=== PATIENT | male | born 1965 | race Caucasian/White ===

== ENCOUNTER 2017-01-12 15:54 | Emergency (ER) | payer MEDICAID ==
[2017-01-12 16:06] VITALS: BP 159/99
--- NOTE | 2017-01-12 17:26 | EDM.PDOC ---
[id number] 4d WITHDRAWAL SYMPTOMS Time Seen by Provider: 01/12/17 16:30 Source of Information: Reports: Patient History Limitations: Reports: No limitations - History of Present Illness INITIAL COMMENTS - FREE TEXT/NARRATIVE: 51-year-old male with chronic anxiety presents with intermittent palpitations and generalized ill feeling while trying to wean himself off of lorazepam. He is very nonspecific about his symptoms. He was placed on a monitor and is in normal sinus rhythm. No nausea vomiting, no diarrhea. Apparently he took 3 doses of lorazepam 3 days ago, 2 doses 2 days ago and is waiting for 72 hours to see if he can get through without having significant side effects. The 72 hours will be at 2:00 tomorrow. Onset: unknown/unsure Associated Symptoms: Reports: chest pain (Intermittent slight chest discomfort) , shortness of breath. Denies: fever/chills, headaches - Related Data Allergies Allergy/AdvReac Type Severity Reaction Status Date / Time bupropion HCl Allergy Intermediate Anxiety Verified 01/12/17 16:14 [From Wellbutrin] citalopram Allergy Headache Verified 01/12/17 16:14 sertraline HCl [From Zoloft] Allergy Confusion Verified 01/12/17 16:14 venlafaxine HCl Allergy Confusion Verified 01/12/17 16:14 [From Effexor] Home Meds: Home Meds Lisinopril [Lisinopril] 20 mg PO DAILY 06/05/15 [History] LORazepam 1 mg PO Q4H PRN 06/09/15 [History] Metoprolol Succinate [Toprol XL] 100 mg PO DAILY 06/09/15 [History] atorvaSTATin [Lipitor] 20 mg PO DAILY 09/20/15 [History] Aspirin 81 mg PO DAILY 03/05/16 [History] Fluticasone Propionate [Flonase] 16 gm NS DAILY 03/05/16 [History] Gabapentin [Neurontin] 900 mg PO QID 03/05/16 [History] Sodium Borate [Dobell's] 3 puff EARLF ASDIRECTED 03/05/16 [History] Mirtazapine 0.5 - 1 tab PO DAILY 01/12/17 [History] fluvoxaMINE [Luvox] 150 mg PO DAILY 01/12/17 [History] Past Medical History HEENT History: Reports: Hard of hearing, Otitis media Cardiovascular History: Reports: Arrhythmia, High cholesterol, Hypertension Other Cardiovascular History: tachycardia Respiratory History: Reports: COPD Gastrointestinal History: Reports: GERD Musculoskeletal History: Reports: Fracture Psychiatric History: Reports: Addiction, Anxiety, Panic attack Endocrine/Metabolic History: Reports: Obesity/BMI 30+ Dermatologic History: Reports: Other (see below) Other Dermatologic History: skin tags - Infectious Disease History Infectious Disease History: Reports: Chicken pox - Past Surgical History Other HEENT Surgeries/Procedures: left ear operations Other Respiratory Surgeries/Procedures: Chest tubes in 4th grade GI Surgical History: Reports: Hernia repair/other Musculoskeletal Surgical History: Reports: Other (see below) Other Musculoskeletal Surgeries/Procedures:: left ankle Social & Family History - Tobacco Use Smoking Status *Q: Never Smoker Years of Tobacco use: 22 Packs/Tins Daily: 1 Used Tobacco, but Quit: No Month Tobacco Last Used: 2008 Second Hand Smoke Exposure: Yes - Alcohol Use Days Per Week of Alcohol Use: 0 Number of Drinks Per Day: 4 Total Drinks Per Week: 0 - Recreational Drug Use Recreational Drug Use: Yes Drug Use in Last 12 Months: Yes Recreational Drug Type: Reports: Other (see below) Other Recreational Drug Type: patient was using opiates Recreational Drug Use Frequency: Not Used In Over 1 Month Recreational Drug Last Use: april 2015 - Living Situation & Occupation Living situation: Reports: with significant other (lives with SO of 27 years in [place], [place]. has 4 children.) ED ROS GENERAL - Review of Systems Review Of Systems: See Below Constitutional: Reports: malaise. Denies: fever, chills HEENT: Reports: No symptoms Respiratory: Reports: Shortness of Breath. Denies: Pleuritic Chest Pain Cardiovascular: Reports: Chest pain GI/Abdominal: Denies: Abdominal pain : Reports: no symptoms Skin: Reports: no symptoms Neurological: Reports: Dizziness. Denies: Headache ED EXAM, GENERAL - Physical Exam Exam: See Below Exam Limited By: No limitations General Appearance: alert, no apparent distress Neck: supple Respiratory/Chest: no respiratory distress, lungs clear Cardiovascular: regular rate, rhythm GI/Abdominal: soft, non tender Extremities: normal inspection. No: pedal edema Neurological: alert, oriented Psychiatric: anxious Skin Exam: Warm, Dry Course - Vital Signs Last Recorded V/S: Last Vital Signs Temp 98.6 F 01/12/17 16:09 Pulse 68 01/12/17 16:09 Resp 16 01/12/17 16:09 BP 159/99 H 01/12/17 16:09 Pulse Ox 100 01/12/17 16:09 - Orders/Labs/Meds Labs: Laboratory Tests 01/12/17 01/12/17 Range/Units 17:00 17:00 WBC 10.8 (4.5-11.0) K/uL RBC 5.18 (4.30-5.90) M/uL Hgb 15.3 H (12.0-15.0) g/dL Hct 45.7 (40.0-54.0) % MCV 88 (80-98) fL MCH 30 (27-31) pg MCHC 34 (32-36) % Plt Count 411 H (150-400) K/uL Neut % (Auto) 80 H (36-66) % Lymph % (Auto) 14 L (24-44) % Leake % (Auto) 5 (2-6) % Eos % (Auto) 1 L (2-4) % Baso % (Auto) 1 (0-1) % Sodium 143 (140-148) mmol/L Potassium 4.2 (3.6-5.2) mmol/L Chloride 103 (100-108) mmol/L Carbon Dioxide 27 (21-32) mmol/L Anion Gap 12.6 (5.0-14.0) mmol/L BUN 9 (7-18) mg/dL Creatinine 1.1 (0.8-1.3) mg/dL Est Cr Clr Drug Dosing 89.16 mL/min Estimated GFR (MDRD) > 60 (>60) Glucose 106 (74-106) mg/dL Calcium 8.9 (8.5-10.1) mg/dL - Re-Assessments/Exams Free Text/Narrative Re-Assessment/Exam: 01/12/17 17:23 I tried to explain to the patient that his symptoms could very well be anxiety or even a slight amount of medication withdrawal. He feels the Ativan is giving him palpitations and he wants to try diazepam. I do not feel comfortable substituting medications and I think his best course of action is to just take his medications as prescribed by his physicians. For reassurance I did a CBC and BMP which were completely normal. He was kept on a monitor for almost 2 hours and was in a normal sinus rhythm. Departure - Departure Time of Disposition: 18:03 Disposition: Home, Self-Care 01 Condition: good Clinical Impression: Anxiety about health Instructions: Panic Attacks, [id number] Referrals: Shaji Hayward MD [Primary Care Provider] - Forms: ED Department Discharge Care Plan Goals: Continue taking medications as prescribed by your doctors and any changes should be with the prescribing doctor's recommendation.
== END 2017-01-12 17:50 | disposition home or self-care (01) ==
LOC: JP.ED 15:54
DX: F41.9 Anxiety disorder, unspecified (principal); I10 Essential (primary) hypertension; E78.00 Pure hypercholesterolemia, unspecified; J44.9 Chronic obstructive pulmonary disease, unspecified; K21.9 Gastro-esophageal reflux disease without esophagitis; E66.9 Obesity, unspecified; Z79.899 Other long term (current) drug therapy; Z79.82 Long term (current) use of aspirin; Z88.8 Allergy status to other drugs, medicaments and biological substances
CPT/HCPCS: 36415; 80048; 85025; 99282; 99285

== ENCOUNTER 2017-04-15 14:58 | Emergency (ER) | payer MEDICAID ==
[2017-04-15 15:33] VITALS: BP 161/95
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
== END 2017-04-15 18:59 | disposition home or self-care (01) ==
LOC: JP.ED 14:58
DX: R60.9 Edema, unspecified (principal); F41.9 Anxiety disorder, unspecified; J44.9 Chronic obstructive pulmonary disease, unspecified; K21.9 Gastro-esophageal reflux disease without esophagitis; E66.9 Obesity, unspecified; Z87.891 Personal history of nicotine dependence; Z79.82 Long term (current) use of aspirin; Z79.899 Other long term (current) drug therapy; Z88.8 Allergy status to other drugs, medicaments and biological substances
CPT/HCPCS: 99283

== ENCOUNTER 2017-04-27 17:45 | Emergency (ER) | payer MEDICAID ==
[2017-04-27] MEDS ORDERED: Diazepam 5 MG Tab PO ONE (19:01)
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
[2017-04-27 19:13] VITALS: BP 119/75
== END 2017-04-27 19:26 | disposition home or self-care (01) ==
LOC: JP.ED 17:45
DX: F41.9 Anxiety disorder, unspecified (principal); F17.210 Nicotine dependence, cigarettes, uncomplicated; E78.00 Pure hypercholesterolemia, unspecified; I10 Essential (primary) hypertension; J44.9 Chronic obstructive pulmonary disease, unspecified; K21.9 Gastro-esophageal reflux disease without esophagitis; E66.9 Obesity, unspecified; Z79.82 Long term (current) use of aspirin; Z79.899 Other long term (current) drug therapy; Z98.890 Other specified postprocedural states; Z88.8 Allergy status to other drugs, medicaments and biological substances
CPT/HCPCS: 99283; A9270

== ENCOUNTER 2017-04-30 10:44 | Emergency (ER) | payer MEDICAID ==
[2017-04-30 11:34] VITALS: BP 153/101
[2017-04-30] MEDS ORDERED: LORazepam 1 MG Tab PO ONE (11:49)
[2017-04-30] MEDS ORDERED: ALPRAZolam 0.25 MG Tab PO ONE (12:02)
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
[2017-04-30] MEDS ORDERED: Gabapentin 300 MG Cap PO ONE ×2 (12:37→18:28)
[2017-04-30] MEDS ORDERED: Acetaminophen 500 MG Tab PO ONE (12:37)
[2017-04-30] MEDS ORDERED: Aspirin 81 MG Tab.Chew PO ONE (12:37)
[2017-04-30] MEDS ORDERED: ALPRAZolam 0.5 MG Tab PO ONE (18:28)
[2017-04-30] MEDS ORDERED: Acetaminophen 325 MG Tab PO ONE (18:35)
== END 2017-04-30 19:45 | disposition other institution (70) ==
LOC: JP.ED 10:44
DX: F13.20 Sedative, hypnotic or anxiolytic dependence, uncomplicated (principal); E78.00 Pure hypercholesterolemia, unspecified; I10 Essential (primary) hypertension; J44.9 Chronic obstructive pulmonary disease, unspecified; K21.9 Gastro-esophageal reflux disease without esophagitis; F41.9 Anxiety disorder, unspecified; E66.9 Obesity, unspecified; Z98.890 Other specified postprocedural states; Z79.82 Long term (current) use of aspirin; Z79.899 Other long term (current) drug therapy; Z88.8 Allergy status to other drugs, medicaments and biological substances; Z88.1 Allergy status to other antibiotic agents
CPT/HCPCS: 36415; 80053; 80305; 81001; 84443; 85025; 99285; A9270

== ENCOUNTER 2023-08-15 15:03 | Emergency (ER) | payer MEDICAID ==
[2023-08-15 15:26] LABS: BASOPHILS ABSOLUTE AUTO 0.07 K/uL (0.00-0.10); BASOPHILS PERCENT AUTO 0.7 % (0.1-1.3); EOSINOPHILS ABSOLUTE AUTO 0.08 K/uL (0.00-0.40); EOSINOPHILS PERCENT AUTO 0.8 % (0.0-5.4); HEMATOCRIT 28.9 % (38.4-49.7); IMMATURE GRAN ABSOLUTE AUTO 0.05 K/uL (0.00-0.23); IMMATURE GRAN PERCENT AUTO 0.5 % (0.0-0.7); LYMPHOCYTES ABSOLUTE AUTO 1.02 K/uL (0.8-3.3); LYMPHOCYTES PERCENT AUTO 10.2 % (11.4-47.7); MEAN CORPUSCULAR HEMOGLOBIN 35.7 pg (31.6-35.5); MEAN CORPUSCULAR HGB CONC 34.6 g/dL (31.6-35.5); MEAN CORPUSCULAR VOLUME 103.2 fL (81.4-99.0); MONOCYTES ABSOLUTE AUTO 0.99 K/uL (0.20-0.90); MONOCYTES PERCENT AUTO 9.9 % (3.3-12.6); NEUTROPHILS ABSOLUTE AUTO 7.79 K/uL (1.0-7.6); NEUTROPHILS PERCENT AUTO 77.9 % (40.0-78.1); PLATELET COUNT,PLT 214 K/uL (130-375)
[2023-08-15 15:48] LABS: A/G RATIO 0.4 (1.2-2.2); ALANINE AMINOTRANSFERASE,ALT 39 U/L (12-78); ALBUMIN 1.9 g/dL (3.4-5.0); ALKALINE PHOSPHATASE 129 U/L (46-116); ANION GAP 11.5 mmol/L (5.0-14.0); ASPARTATE AMNIOTRANSFERASE,AST 169 U/L (15-37); BILIRUBIN TOTAL 2.9 mg/dL (0.2-1.0); BLOOD UREA NITROGEN,BUN 9 mg/dL (7-18); C-REACTIVE PROTEIN 5.46 mg/dL (0.0-0.3); CALCIUM 7.9 mg/dL (8.5-10.1); CARBON DIOXIDE,CO2 30 mmol/L (21-32); CHLORIDE,CL 92 mmol/L (100-108); CREATINE KINASE,CK 257 U/L (39-308); CREATININE 0.9 mg/dL (0.8-1.3); EST CRCL DRUG DOSING (CG) 97.61 mL/min; ESTIMATED GFR 100 mL/min (>60); GLUCOSE RANDOM 118 mg/dL (74-106); POTASSIUM,K 4.5 mmol/L (3.6-5.2); PROTEIN TOTAL,TP 6.6 g/dL (6.4-8.2); SODIUM,NA 129 mmol/L (140-148)
[2023-08-15] MEDS ORDERED: Sodium Chloride 0.9% 1,000 ML IV ONE (16:42)
[2023-08-15] MEDS ORDERED: Calcium Carbonate 500 MG Tab.Chew PO ONE (16:51)
[2023-08-15 17:00] LABS: APPEARANCE,URINE CLEAR (CLEAR); BILIRUBIN,URINE NEGATIVE (NEGATIVE); COLOR,URINE YELLOW (YELLOW); GLUCOSE,URINE NEGATIVE (NEGATIVE); KETONES,URINE NEGATIVE (NEGATIVE); LEUKOCYTE ESTERASE,URINE TRACE (NEGATIVE); NITRITE,URINE NEGATIVE (NEGATIVE); OCCULT BLOOD,URINE NEGATIVE (NEGATIVE); PROTEIN,URINE NEGATIVE (NEGATIVE); UROBILINOGEN,URINE >=8.0 EU/dL (0.2-1.0)
[2023-08-15] MEDS ORDERED: Sodium Chloride 0.9% 1,000 ML IV SCH (17:00)
[2023-08-15 17:05] LABS: RBC,URINE 0-5 (0-5); WBC,URINE 0-5 (0-5)
[2023-08-15 17:06] LABS: AMORPHOUS SEDIMENT,URINE NOT SEEN; BACTERIA,URINE RARE; EPITHELIAL CELLS,URINE RARE; MUCUS,URINE NOT SEEN
[2023-08-15 18:05] LABS: BASE EXCESS VENOUS 5.5 mm/L; BICARBONATE,VENOUS 30.1 mmol/L; METHEMOGLOBIN 0.8 %; O2 SATURATION VENOUS 70.4; OXYHEMOGLOBIN 67.7 %; PH,VENOUS 7.431 (7.350-7.450); PO2 VENOUS 41.5 mm/Hg
[2023-08-15 18:16] LABS: AMPHETAMINES SCREEN, URINE NEGATIVE (NEGATIVE); BARBITURATE SCREEN,URINE NEGATIVE (NEGATIVE); BENZODIAZEPINES SCREEN,URINE NEGATIVE (NEGATIVE); METHADONE SCREEN, URINE NEGATIVE (NEGATIVE); METHAMPHETAMINES SCREEN, URINE PRESUMPTIVE POSITIVE (NEGATIVE); OXYCODONE SCREEN,URINE NEGATIVE (NEGATIVE); PROPOXYPHENE SCREEN,URINE NEGATIVE (NEGATIVE); THC SCREEN,URINE 50 NG/ML NEGATIVE (NEGATIVE)
[2023-08-16] MEDS ORDERED: Calcium Carbonate 500 MG Tab.Chew PO PRN (21:36)
[2023-08-17 11:21] LABS: BASOPHILS ABSOLUTE AUTO 0.09 K/uL (0.00-0.10); EOSINOPHILS ABSOLUTE AUTO 0.14 K/uL (0.00-0.40); EOSINOPHILS PERCENT AUTO 1.5 % (0.0-5.4); HEMATOCRIT 27.1 % (38.4-49.7); HEMOGLOBIN 9.2 g/dL (12.9-16.9); IMMATURE GRAN ABSOLUTE AUTO 0.04 K/uL (0.00-0.23); IMMATURE GRAN PERCENT AUTO 0.4 % (0.0-0.7); LYMPHOCYTES ABSOLUTE AUTO 1.33 K/uL (0.8-3.3); LYMPHOCYTES PERCENT AUTO 14.4 % (11.4-47.7); MEAN CORPUSCULAR HEMOGLOBIN 35.8 pg (31.6-35.5); MEAN CORPUSCULAR HGB CONC 33.9 g/dL (31.6-35.5); MEAN CORPUSCULAR VOLUME 105.4 fL (81.4-99.0); MONOCYTES PERCENT AUTO 11.9 % (3.3-12.6); NEUTROPHILS ABSOLUTE AUTO 6.52 K/uL (1.0-7.6); NEUTROPHILS PERCENT AUTO 70.8 % (40.0-78.1); PLATELET COUNT,PLT 193 K/uL (130-375); RED BLOOD CELL COUNT 2.57 M/uL (4.14-5.76); WHITE BLOOD CELL COUNT,WBC 9.2 K/uL (3.2-11.0)
[2023-08-17 11:44] LABS: A/G RATIO 0.4 (1.2-2.2); ALANINE AMINOTRANSFERASE,ALT 32 U/L (12-78); ALBUMIN 1.9 g/dL (3.4-5.0); ALKALINE PHOSPHATASE 131 U/L (46-116); ASPARTATE AMNIOTRANSFERASE,AST 137 U/L (15-37); BILIRUBIN TOTAL 1.9 mg/dL (0.2-1.0); BLOOD UREA NITROGEN,BUN 10 mg/dL (7-18); CARBON DIOXIDE,CO2 30 mmol/L (21-32); CHLORIDE,CL 96 mmol/L (100-108); CREATININE 1.1 mg/dL (0.8-1.3); EST CRCL DRUG DOSING (CG) 79.86 mL/min; ESTIMATED GFR 79 mL/min (>60); GLUCOSE RANDOM 111 mg/dL (74-106); POTASSIUM,K 4.3 mmol/L (3.6-5.2); PROTEIN TOTAL,TP 6.5 g/dL (6.4-8.2); SODIUM,NA 131 mmol/L (140-148)
[2023-08-17 11:46] LABS: ANION GAP 9.3 mmol/L (5.0-14.0)
[2023-08-17] MEDS ORDERED: Calcium Carbonate 500 MG Tab.Chew PO ONE (14:38)
[2023-08-17] MEDS: Naltrexone 50 MG Tab PO SCH (23:25)
[2023-08-17] MEDS: Gabapentin 300 MG Cap PO SCH (23:25)
[2023-08-18 05:29] LABS: BASOPHILS ABSOLUTE AUTO 0.12 K/uL (0.00-0.10); BASOPHILS PERCENT AUTO 1.3 % (0.1-1.3); EOSINOPHILS PERCENT AUTO 2.1 % (0.0-5.4); HEMATOCRIT 26.7 % (38.4-49.7); HEMOGLOBIN 9.2 g/dL (12.9-16.9); IMMATURE GRAN ABSOLUTE AUTO 0.04 K/uL (0.00-0.23); IMMATURE GRAN PERCENT AUTO 0.4 % (0.0-0.7); LYMPHOCYTES ABSOLUTE AUTO 1.64 K/uL (0.8-3.3); LYMPHOCYTES PERCENT AUTO 17.6 % (11.4-47.7); MEAN CORPUSCULAR HEMOGLOBIN 36.1 pg (31.6-35.5); MEAN CORPUSCULAR HGB CONC 34.5 g/dL (31.6-35.5); MEAN CORPUSCULAR VOLUME 104.7 fL (81.4-99.0); MONOCYTES ABSOLUTE AUTO 1.07 K/uL (0.20-0.90); MONOCYTES PERCENT AUTO 11.5 % (3.3-12.6); NEUTROPHILS ABSOLUTE AUTO 6.27 K/uL (1.0-7.6); NEUTROPHILS PERCENT AUTO 67.1 % (40.0-78.1); PLATELET COUNT,PLT 160 K/uL (130-375); RED BLOOD CELL COUNT 2.55 M/uL (4.14-5.76); WHITE BLOOD CELL COUNT,WBC 9.3 K/uL (3.2-11.0)
[2023-08-18 06:00] LABS: A/G RATIO 0.4 (1.2-2.2); ALANINE AMINOTRANSFERASE,ALT 30 U/L (12-78); ALBUMIN 1.8 g/dL (3.4-5.0); ALKALINE PHOSPHATASE 125 U/L (46-116); ASPARTATE AMNIOTRANSFERASE,AST 116 U/L (15-37); BILIRUBIN TOTAL 1.6 mg/dL (0.2-1.0); BLOOD UREA NITROGEN,BUN 8 mg/dL (7-18); CALCIUM 7.8 mg/dL (8.5-10.1); CARBON DIOXIDE,CO2 29 mmol/L (21-32); CHLORIDE,CL 99 mmol/L (100-108); CREATININE 1.1 mg/dL (0.8-1.3); EST CRCL DRUG DOSING (CG) 79.86 mL/min; ESTIMATED GFR 79 mL/min (>60); GLUCOSE RANDOM 105 mg/dL (74-106); POTASSIUM,K 3.9 mmol/L (3.6-5.2); PROTEIN TOTAL,TP 6.1 g/dL (6.4-8.2); SODIUM,NA 133 mmol/L (140-148)
[2023-08-18 06:01] LABS: ANION GAP 8.9 mmol/L (5.0-14.0)
[2023-08-18] MEDS ORDERED: Furosemide 40 MG Tab PO SCH (09:00)
[2023-08-18] MEDS: Gabapentin 300 MG Cap PO SCH ×3 (10:56→20:36)
[2023-08-18] MEDS: Multivitamins with Iron/Calcium/Folic Acid/Minerals Tab PO SCH (10:56)
[2023-08-18] MEDS: Tamsulosin 0.4 MG Cap.ER PO SCH (10:56)
[2023-08-18] MEDS: Spironolactone 25 MG Tab PO SCH (10:57)
[2023-08-18] MEDS: ARIPiprazole 10 MG Tab PO SCH (10:57)
[2023-08-18] MEDS: Naltrexone 50 MG Tab PO SCH (20:36)
[2023-08-19] MEDS: ARIPiprazole 10 MG Tab PO SCH (08:20)
[2023-08-19] MEDS: Spironolactone 25 MG Tab PO SCH (08:21)
[2023-08-19] MEDS: Tamsulosin 0.4 MG Cap.ER PO SCH (08:22)
[2023-08-19] MEDS: Gabapentin 300 MG Cap PO SCH ×3 (08:23→21:10)
[2023-08-19] MEDS: Multivitamins with Iron/Calcium/Folic Acid/Minerals Tab PO SCH (08:23)
[2023-08-19] MEDS: Naltrexone 50 MG Tab PO SCH (21:10)
[2023-08-20] MEDS: ARIPiprazole 10 MG Tab PO SCH (08:20)
[2023-08-20] MEDS: Gabapentin 300 MG Cap PO SCH ×3 (08:20→23:03)
[2023-08-20] MEDS: Multivitamins with Iron/Calcium/Folic Acid/Minerals Tab PO SCH (08:20)
[2023-08-20] MEDS: Tamsulosin 0.4 MG Cap.ER PO SCH (08:21)
[2023-08-20] MEDS: Spironolactone 25 MG Tab PO SCH (08:21)
[2023-08-20] MEDS ORDERED: Acetaminophen 325 MG Tab PO PRN (10:17)
[2023-08-20] MEDS ORDERED: Bacitracin Oint 28.35 GM Tube TOP SCH (10:24)
[2023-08-20] MEDS: Bacitracin Oint 28.35 GM Tube TOP SCH ×2 (10:32→21:15)
[2023-08-20] MEDS: Naltrexone 50 MG Tab PO SCH (21:15)
[2023-08-21] MEDS: Tamsulosin 0.4 MG Cap.ER PO SCH (08:40)
[2023-08-21] MEDS: Gabapentin 300 MG Cap PO SCH ×3 (08:40→21:22)
[2023-08-21] MEDS: Multivitamins with Iron/Calcium/Folic Acid/Minerals Tab PO SCH (08:40)
[2023-08-21] MEDS: Spironolactone 25 MG Tab PO SCH (08:41)
[2023-08-21] MEDS: ARIPiprazole 10 MG Tab PO SCH (08:42)
[2023-08-21] MEDS: Bacitracin Oint 28.35 GM Tube TOP SCH ×2 (09:00→21:22)
[2023-08-21] MEDS: Naltrexone 50 MG Tab PO SCH (21:22)
[2023-08-21] MEDS ORDERED: LORazepam 1 MG Tab PO ONE (22:57)
[2023-08-22] MEDS: Bacitracin Oint 28.35 GM Tube TOP SCH ×2 (08:24→22:21)
[2023-08-22] MEDS: Spironolactone 25 MG Tab PO SCH (08:25)
[2023-08-22] MEDS: ARIPiprazole 10 MG Tab PO SCH (08:25)
[2023-08-22] MEDS: Gabapentin 300 MG Cap PO SCH ×3 (08:26→22:22)
[2023-08-22] MEDS: Multivitamins with Iron/Calcium/Folic Acid/Minerals Tab PO SCH (08:26)
[2023-08-22] MEDS: Tamsulosin 0.4 MG Cap.ER PO SCH (08:27)
[2023-08-22] MEDS ORDERED: Albuterol/Ipratropium 3.0-0.5 MG/3 ML Neb Soln NEB ONE (16:52)
[2023-08-22] MEDS: Naltrexone 50 MG Tab PO SCH (22:22)
[2023-08-22] MEDS ORDERED: LORazepam 1 MG Tab PO ONE (23:34)
[2023-08-23 07:32] VITALS: BP 148/83; PULSE 101
[2023-08-23] MEDS: Tamsulosin 0.4 MG Cap.ER PO SCH (08:39)
[2023-08-23] MEDS: Gabapentin 300 MG Cap PO SCH (08:39)
[2023-08-23] MEDS: Multivitamins with Iron/Calcium/Folic Acid/Minerals Tab PO SCH (08:39)
[2023-08-23] MEDS: Bacitracin Oint 28.35 GM Tube TOP SCH (08:39)
[2023-08-23] MEDS: Spironolactone 25 MG Tab PO SCH (08:39)
[2023-08-23] MEDS: ARIPiprazole 10 MG Tab PO SCH (08:40)
== END 2023-08-23 15:05 | disposition home or self-care (01) ==
LOC: JP.ED 15:03
DX: E87.1 Hypo-osmolality and hyponatremia (principal); F15.10 Other stimulant abuse, uncomplicated; I10 Essential (primary) hypertension; E78.00 Pure hypercholesterolemia, unspecified; J44.9 Chronic obstructive pulmonary disease, unspecified; K21.9 Gastro-esophageal reflux disease without esophagitis; E66.9 Obesity, unspecified; Z68.43 Body mass index [BMI] 50.0-59.9, adult; Z88.8 Allergy status to other drugs, medicaments and biological substances; Z79.82 Long term (current) use of aspirin; Z79.899 Other long term (current) drug therapy
CPT/HCPCS: 36415; 80053; 80305-QW; 80307; 81001; 82550; 82803; 83605; 85025; 86140; 94640; 96360; 97161-GP; 99284; 99285-25; A9270-GY; J7030; J7620